=== PATIENT | female | born 1945 ===

== ENCOUNTER 2017-09-07 09:05 | Day surgery (SDC) | payer MEDICARE ==
[~2017-09-07] VITALS: Ht 165.1 cm; Wt 56.7 kg
[~2017-09-07 09:05] MED LIST: LATANOPROST2.5 ML OPTH; TIMOLOL MALEATE5 M2 OP
== END 2017-09-07 11:20 | disposition home or self-care (01) ==
LOC: DSVR 09:05 → OPS 09:05 → DS 10:00 → OPS 11:20
PROVIDERS: Ophthalmology
PROC: 08RK3JZ Replacement of Left Lens with Synthetic Substitute, Percutaneous Approach (ICD-10-PCS; principal; 2017-09-07 10:00)
DX: H25.13 Age-related nuclear cataract, bilateral (principal); H40.1132 Primary open-angle glaucoma, bilateral, moderate stage; E78.00 Pure hypercholesterolemia, unspecified; F32.9 Major depressive disorder, single episode, unspecified; K59.00 Constipation, unspecified; K92.1 Melena; Z88.0 Allergy status to penicillin; Z88.2 Allergy status to sulfonamides
CPT/HCPCS: 0474T; 66984; C1783; J2250